=== PATIENT | male | born 1950 | race Caucasian/White ===

== ENCOUNTER 2023-04-19 08:19 | Outpatient (CLI) | payer MEDICARE | END 2023-04-19 08:20 | disposition home or self-care (01) | LOC: CSHMRI 08:19 | PROVIDERS: ATTEND Neurological Surgery | DX: M54.16 Radiculopathy, lumbar region (principal); M48.062 Spinal stenosis, lumbar region with neurogenic claudication; M41.86 Other forms of scoliosis, lumbar region; M41.84 Other forms of scoliosis, thoracic region; M48.04 Spinal stenosis, thoracic region; M54.14 Radiculopathy, thoracic region | CPT/HCPCS: 72146 ==